=== PATIENT | male | born 1955 | race Hispanic/Latino ===

== ENCOUNTER 2017-12-10 10:23 | Day surgery (SDC) | payer MEDICAID ==
[2017-12-10] MEDS ORDERED: SUBLIMAZE ONE (14:17)
[2017-12-10] MEDS ORDERED: DIPRIVAN 10 MG/ML IV ONE (14:17)
[2017-12-10] MEDS ORDERED: ZOFRAN ONE (14:18)
[2017-12-10] MEDS ORDERED: XYLOCAINE MPF 2% ONE (14:18)
[2017-12-10] MEDS ORDERED: DECADRON ONE (14:18)
[2017-12-10] MEDS ORDERED: NACL 0.9% 1000 ML 1,000 ML ONE (14:53)
[2017-12-10] MEDS ORDERED: NACL 0.9% 1000 ML 1,000 ML IV SCH (15:00)
[2017-12-10] MEDS ORDERED: ANCEF/STERILE WATER 2 GM/20 ML IV NR (15:00)
--- NOTE | 2017-12-10 15:01 | Short Stay Summary ---
Short Stay Documentation Date of service: 12/10/17 - History H&P: obtained from office - Allergies and Medications Current Medications: Allergies hydrocodone Allergy (Verified 12/07/17 11:20) Itching Home Medications Medication Instructions Recorded Confirmed Last Taken Type Aspirin [Lo-Dose Aspirin EC] 81 mg PO DAILY 12/07/17 12/10/17 12/04/17 History Atenolol [Tenormin] 25 mg PO DAILY 12/07/17 12/10/17 12/10/17 07:00 History Finasteride [Proscar] 5 mg PO DAILY 12/07/17 12/07/17 12/09/17 History Ketorolac [Toradol] 10 mg PO Q4HR PRN 12/07/17 12/10/17 1 Week Ago History ~12/03/17 Ranitidine HCl [Acid Reception Centre Manager] 150 mg PO QHS 12/07/17 12/07/17 12/09/17 History Simvastatin [Zocor TAB] 20 mg PO QHS 12/07/17 12/07/17 12/09/17 History Sulfamethoxazole/Trimethoprim 1 each PO BID 12/07/17 12/07/17 12/09/17 History [Bactrim DS TAB] Tamsulosin [Flomax] 0.4 mg PO QDAY 12/07/17 12/07/17 12/09/17 History Zolpidem [Ambien] 5 mg PO QHS 12/07/17 12/07/17 12/09/17 History metFORMIN [Glucophage] 500 mg PO BID 12/07/17 12/07/17 12/09/17 History traZODone [Desyrel] 100 mg PO QHS 12/07/17 12/07/17 12/09/17 History Active Medications Cefazolin Sodium (Ancef/Sterile Water 2 Gm/20 Ml) 2 gm IV PREOP NR Stop: 12/10/17 23:59 Sodium Chloride (Nacl 0.9% 1000 Ml) 1,000 mls @ 125 mls/hr IV DIRECT RADHA - Brief post op/procedure progress note Date of procedure: 12/10/17 Pre-op diagnosis: left uret stone 8mm Post-op diagnosis: same Procedure: lef uret 8mm eswl Anesthesia: GETA Findings: vis similar to kub Surgeon: INGRID BAY Estimated blood loss: none Pathology: none Condition: stable - Hospital course Hospital course: or pacu home - Disposition Condition at discharge: Good Disposition: DC-01 TO HOME OR SELFCARE Short Stay Discharge Plan Activity: advance as tolerated Diet: advance as tolerated Follow up with: INGRID BAY MD [Staff Physician] - 7 Days Forms: Outpatient Surgery DC Inst.
[2017-12-10 18:08] VITALS: BP 126/68
--- NOTE | 2017-12-20 22:50 | Operative Report ---
PREOPERATIVE DIAGNOSIS: Left ureteral stone, 8 mm. POSTOPERATIVE DIAGNOSIS: Left ureteral stone, 8 mm. PROCEDURE: Left ureteral ESWL. FINDINGS: Visualization similar to KUB. SURGEON: Amadou Perdomo M.D. ESTIMATED BLOOD LOSS: None. PATHOLOGY: None. CONDITION: Stable. CLINICAL INDICATIONS: The patient counseled RCBA, antibiotics, SCDs. Discussed option of ureteroscopy versus ESWL wanted to try ESWL as best as possible, antibiotics, SCDs. DESCRIPTION OF PROCEDURE: The patient was transferred to OR suite in supine position, anesthesia begun. Preoperative KUB with stone visualized, it was difficult to visualize on the KUB, but was visualized and correlated as the same shape and sized calcification on the biplanar fluoroscopy. Shocks were delivered, intermittent repositioning done as necessary, a maximum of 6.0 kilovolts. At the end of the procedure, the stone was not clearly identified. The patient was awakened and transferred to the PACU in good and stable condition. JOB# [id number] ATS/NTS
== END 2017-12-10 17:25 | disposition home or self-care (01) ==
LOC: OR 10:23
PROVIDERS: ATTEND Urology
DX: N20.0 Calculus of kidney (principal); I10 Essential (primary) hypertension; E11.9 Type 2 diabetes mellitus without complications; E78.5 Hyperlipidemia, unspecified; K58.9 Irritable bowel syndrome, unspecified; Z98.890 Other specified postprocedural states; Z79.84 Long term (current) use of oral hypoglycemic drugs; Z79.899 Other long term (current) drug therapy; Z87.891 Personal history of nicotine dependence; Z88.5 Allergy status to narcotic agent
CPT/HCPCS: 50590; 82962; J0690; J1100; J2405; J2704; J3010; J7030